=== PATIENT | female | born 1975 | race Native Hawaiian/Other Pacific Islander ===

== ENCOUNTER 2016-06-21 21:56 | Emergency (ER) | payer OTHER ==
[2016-06-21] MEDS ORDERED: KETOROLAC TROMETHAMINE 15 MG/ML VIAL ONE (23:31)
[2016-06-21] MEDS ORDERED: AMOX 875 MG/CLAV 125 MG 1 EACH TABLET ONE (23:31)
[2016-06-21] MEDS ORDERED: DEXAMETHASONE SOD PHOS 10 MG/1 ML VIAL ONE (23:31)
== END 2016-06-21 23:49 | disposition home or self-care (01) ==
LOC: ED 21:56
DX: J03.90 Acute tonsillitis, unspecified (principal)
CPT/HCPCS: 87070; 87880; 99283 ×2; 96372; A9270; J1100; J1885